=== PATIENT | male | born 1955 | race Caucasian/White ===

== ENCOUNTER 2017-08-07 06:40 | Inpatient (IN) | payer MEDICAID ==
[~2017-08-07] VITALS: Ht 175.3 cm; Wt 84.1 kg
[~2017-08-07 06:40] MED LIST: FER325T PO; FOLI1TAB6 PO; LEVO75TA6 PO; PANT1INJ3 PO; PROP60CA8 PO; THIA100T11 PO
[2017-08-07] MEDS ORDERED: LIDOCAINE 2%HCL (LOCAL ANESTH.) INJ 20ML MDV ONE (07:10)
[2017-08-07] MEDS ORDERED: IODIXANOL 320MG/ML 100ML BTL IV ONE (07:10)
[2017-08-07] MEDS ORDERED: fentaNYL CITRATE 100 MCG/2 ML VL ONE (07:41)
[2017-08-07] MEDS ORDERED: VERAPAMIL 2.5MG/ML INJ 2ML VIAL IV ONE (07:41)
[2017-08-07] MEDS ORDERED: MIDAZOLAM HCL 1MG/1ML-2 ML VIAL ONE (07:42)
[2017-08-07] MEDS ORDERED: ANGIOMAX 250 MG VIAL IV ONE (07:42)
[2017-08-07] MEDS ORDERED: SODIUM CHL 0.9% 50 ML ONE (07:42)
[2017-08-07] MEDS ORDERED: PRASUGREL HCL 10 MG TAB ONE (08:17)
[2017-08-07] MEDS ORDERED: NITROGLYCERIN 0.4 MG SL TAB SL PRN (08:45)
[2017-08-07] MEDS ORDERED: MORPHINE SULFATE 4 MG/ML SYR/VIAL IV PRN (08:45)
[2017-08-07] MEDS ORDERED: PANT40TA2 PO (09:02)
[2017-08-07] MEDS: PANTOPRAZOLE 40 MG TAB PO SCH (10:00)
[2017-08-07] MEDS ORDERED: PATIENTS OWN MEDICATION (Levothyroxine Sodium 1 TAB) PO SCH (10:00)
[2017-08-07] MEDS ORDERED: PATIENTS OWN MEDICATION (Folic Acid 1 MG) PO SCH (10:00)
[2017-08-07 12:00] VITALS: BP 170/60
[2017-08-07] MEDS: FERROUS SULFATE 325 MG TAB PO SCH ×2 (12:41→21:57)
[2017-08-07] MEDS: HYDROcodone-ACET 5/325MG TAB PO PRN ×2 (12:41→15:52)
[2017-08-07] MEDS: FOLIC ACID 1 MG TAB PO SCH (12:42)
[2017-08-07] MEDS: THIAMINE HCL 100 MG TAB PO SCH (12:42)
[2017-08-07 13:00] VITALS: BP 117/67
[2017-08-07] MEDS ORDERED: GASTROGRAFIN 30 ML SOL ONE (13:18)
[2017-08-07] MEDS: PROPRANOLOL HCL 20 MG TAB PO SCH ×2 (14:00→21:57)
[2017-08-07] MEDS ORDERED: PROPRANOLOL HCL 10 MG PO SCH (14:00)
[2017-08-07 14:19] LABS: Eosinophils # (auto) 0.1 uL; Hemoglobin 10.7 g/dL (13.5-17.5); Mean Corpuscular Hgb Conc. 33.7 g/dL (32.0-36.0); Nucleated Red Blood Cells % 0.1 %; Red Cell Distribution Width 14.4 % (11.8-14.3); White Blood Cell 6.4 10^3/uL (4.4-10.8)
[2017-08-07 14:22] LABS: Basophils # (auto) 0.1 uL; Basophils % (auto) 1.9 % (0.0-2.0); Eosinophils % (auto) 2.1 % (0.0-7.0); Hematocrit 31.6 % (41.0-53.0); Mean Corpuscular Hemoglobin 37.4 pg (28.0-32.0); Mean Corpuscular Volume 110.8 fL (80.0-100.0); Neutrophils # (auto) 4.1 uL; Platelet Count (auto) 90 10^3/uL (140-450); Red Blood Cells 2.85 10^6/uL (4.5-5.90)
[2017-08-07 14:31] LABS: INR 2.25 (0.9-1.15); Prothrombin Time 24.7 sec (9.37-12.3)
[2017-08-07 14:35] LABS: Albumin 2.1 g/dL (3.4-5.0); BUN/Creatinine Ratio 15.4; Potassium 3.8 mmol/L (3.5-5.1); Total Protein 7.4 g/dL (6.4-8.2)
[2017-08-07] MEDS ORDERED: IOHEXOL 350 MG/ML 100ML IJ ONE (15:27)
[2017-08-07 16:57] VITALS: BP 148/91
[2017-08-07 22:00] VITALS: BP 141/75
[2017-08-08 05:24] VITALS: BP 133/77
[2017-08-08] MEDS: LEVOTHYROXINE SODIUM 25 MCG TAB PO SCH (05:51)
[2017-08-08] MEDS: PROPRANOLOL HCL 20 MG TAB PO SCH ×3 (05:51→21:42)
[2017-08-08 10:00] VITALS: BP 138/76
[2017-08-08] MEDS: FERROUS SULFATE 325 MG TAB PO SCH ×2 (10:43→21:45)
[2017-08-08] MEDS: PANTOPRAZOLE 40 MG TAB PO SCH (10:43)
[2017-08-08] MEDS: FOLIC ACID 1 MG TAB PO SCH (10:44)
[2017-08-08] MEDS: THIAMINE HCL 100 MG TAB PO SCH (10:45)
[2017-08-08 13:00] VITALS: BP 109/69
[2017-08-08] MEDS ORDERED: CLOPIDOGREL 300 MG TAB PO ONE (14:45)
[2017-08-08] MEDS: ASPirin 81 mg TAB PO SCH (14:52)
[2017-08-08] MEDS ORDERED: GASTROGRAFIN 30 ML SOL ONE (15:56)
[2017-08-08 17:00] VITALS: BP 123/71
[2017-08-08 22:00] VITALS: BP 132/71
[2017-08-09 05:03] VITALS: BP 132/70
[2017-08-09 05:56] LABS: Basophils # (auto) 0.1 uL; Eosinophils # (auto) 0.1 uL; Monocytes # (auto) 0.9 uL; Nucleated Red Blood Cells % 0.1 %
[2017-08-09 05:59] LABS: Basophils % (auto) 1.3 % (0.0-2.0); Eosinophils % (auto) 2.2 % (0.0-7.0); Hematocrit 27.5 % (41.0-53.0); Hemoglobin 9.5 g/dL (13.5-17.5); Lymphocytes % (auto) 15.4 % (10.0-50.0); Mean Corpuscular Hemoglobin 38.2 pg (28.0-32.0); Mean Corpuscular Hgb Conc. 34.7 g/dL (32.0-36.0); Mean Corpuscular Volume 110.3 fL (80.0-100.0); Monocytes % (auto) 13.5 % (0.0-12.0); Neutrophils # (auto) 4.4 uL; Neutrophils % (auto) 67.6 % (37.0-80.0); Platelet Count (auto) 94 10^3/uL (140-450); White Blood Cell 6.5 10^3/uL (4.4-10.8)
[2017-08-09 06:13] LABS: INR 1.72 (0.9-1.15); Prothrombin Time 18.9 sec (9.37-12.3)
[2017-08-09 06:20] LABS: Potassium 3.7 mmol/L (3.5-5.1)
[2017-08-09 06:24] LABS: Albumin 2.1 g/dL (3.4-5.0); BUN/Creatinine Ratio 21.4; Calcium 8.3 mg/dL (8.5-10.1)
[2017-08-09] MEDS: PROPRANOLOL HCL 20 MG TAB PO SCH ×3 (06:27→21:46)
[2017-08-09] MEDS: LEVOTHYROXINE SODIUM 25 MCG TAB PO SCH (06:27)
[2017-08-09 06:29] LABS: % Iron Saturation 30.3 % (20-55)
[2017-08-09 06:32] LABS: Bilirubin, Total 5.3 mg/dL (0.2-1.0); Total Protein 6.6 g/dL (6.4-8.2)
[2017-08-09 09:00] VITALS: BP 135/71
[2017-08-09 09:26] LABS: Hepatitis B Surface Antigen Negative (Negative)
[2017-08-09] MEDS: ASPirin 81 mg TAB PO SCH (09:28)
[2017-08-09] MEDS: FERROUS SULFATE 325 MG TAB PO SCH ×2 (09:28→21:45)
[2017-08-09] MEDS: FOLIC ACID 1 MG TAB PO SCH (09:28)
[2017-08-09] MEDS ORDERED: GASTROGRAFIN 30 ML SOL ONE (09:28)
[2017-08-09] MEDS: THIAMINE HCL 100 MG TAB PO SCH (09:29)
[2017-08-09] MEDS: PANTOPRAZOLE 40 MG TAB PO SCH (09:29)
[2017-08-09] MEDS: CLOPIDOGREL BISULFATE 75 MG TAB PO SCH (09:29)
[2017-08-09 09:52] LABS: Hepatitis B Core IgM Negative; Hepatitis C Antibody Negative (Negative)
[2017-08-09 09:54] LABS: Hepatitis A Ab IgM Negative
[2017-08-09 13:00] VITALS: BP 101/59
[2017-08-09 16:32] VITALS: BP 101/49
[2017-08-09 21:34] VITALS: BP 157/73
[2017-08-10 05:25] VITALS: BP 119/66
[2017-08-10] MEDS: LEVOTHYROXINE SODIUM 25 MCG TAB PO SCH (06:11)
[2017-08-10] MEDS: PROPRANOLOL HCL 20 MG TAB PO SCH ×2 (06:12→14:19)
[2017-08-10 08:15] VITALS: BP 104/51
[2017-08-10] MEDS: ASPirin 81 mg TAB PO SCH (09:50)
[2017-08-10] MEDS: FERROUS SULFATE 325 MG TAB PO SCH (09:51)
[2017-08-10] MEDS: THIAMINE HCL 100 MG TAB PO SCH (09:51)
[2017-08-10] MEDS: FOLIC ACID 1 MG TAB PO SCH (09:51)
[2017-08-10] MEDS: PANTOPRAZOLE 40 MG TAB PO SCH (09:51)
[2017-08-10] MEDS: CLOPIDOGREL BISULFATE 75 MG TAB PO SCH (09:51)
[2017-08-10 11:24] LABS: Albumin 2.2 g/dL (3.4-5.0); BUN/Creatinine Ratio 14.6; Calcium 8.2 mg/dL (8.5-10.1); Potassium 3.8 mmol/L (3.5-5.1)
[2017-08-10 11:27] LABS: Bilirubin, Total 5.4 mg/dL (0.2-1.0); Total Protein 6.9 g/dL (6.4-8.2)
[2017-08-10 11:38] VITALS: BP 123/67
[2017-08-10 15:25] LABS: % Iron Saturation 25.6 % (20-55)
[2017-08-10 16:52] VITALS: BP 136/78
[2017-08-10 22:00] VITALS: BP 139/79
[2017-08-10 22:30] VITALS: BP 139/79
== END 2017-08-10 22:30 | disposition home or self-care (01) | DRG 175 ==
LOC: CATH 06:40 → TELE-WESTW 06:41
PROVIDERS: ADMIT Internal Medicine; ATTEND Internal Medicine
PROC: 02703DZ Dilation of Coronary Artery, One Artery with Intraluminal Device, Percutaneous Approach (ICD-10-PCS; principal; 2017-08-07)
PROC: 4A023N7 Measurement of Cardiac Sampling and Pressure, Left Heart, Percutaneous Approach (ICD-10-PCS; 2017-08-07)
PROC: B2111ZZ Fluoroscopy of Multiple Coronary Arteries using Low Osmolar Contrast (ICD-10-PCS; 2017-08-07)
DX: I25.10 Atherosclerotic heart disease of native coronary artery without angina pectoris (principal); E43 Unspecified severe protein-calorie malnutrition; D68.9 Coagulation defect, unspecified; D69.6 Thrombocytopenia, unspecified; R17 Unspecified jaundice; K74.60 Unspecified cirrhosis of liver; D64.9 Anemia, unspecified; F10.10 Alcohol abuse, uncomplicated; K21.9 Gastro-esophageal reflux disease without esophagitis; K42.9 Umbilical hernia without obstruction or gangrene; I10 Essential (primary) hypertension; Z91.19 Patient's noncompliance with other medical treatment and regimen; Z85.038 Personal history of other malignant neoplasm of large intestine; Z86.010 Personal history of colon polyps; Z90.49 Acquired absence of other specified parts of digestive tract; Z95.5 Presence of coronary angioplasty implant and graft; Z68.27 Body mass index [BMI] 27.0-27.9, adult
CPT/HCPCS: 36415; 71260; 74176; 74177; 76700; 80053; 80074; 82270; 82378; 82390; 82607; 83540; 83550; 83615; 85025; 85045; 85610; 86038; 86880; 92928; 93458; 99152; C1874; J2250; Q9967